=== PATIENT | female | born 1985 | race African-American/Black ===

== ENCOUNTER 2017-12-15 12:30 | Emergency (ER) | payer OTHER ==
[~2017-12-15] VITALS: Ht 167.6 cm; Wt 102.0 kg
[~2017-12-15 12:30] MED LIST: FOLI-43 PO; IRON-1 PO; PNV1TABL76 PO
[2017-12-15 13:09] VITALS: BP 130/79
== END 2017-12-15 19:10 | disposition left against medical advice (07) ==
LOC: EDSTATUS 12:30 → ER 12:46
DX: R10.9 Unspecified abdominal pain (principal); Z53.21 Procedure and treatment not carried out due to patient leaving prior to being seen by health care provider

== ENCOUNTER 2018-01-05 20:41 | Observation (INO) | payer OTHER ==
[~2018-01-05] VITALS: Ht 165.1 cm; Wt 99.8 kg
[2018-01-05] MEDS ORDERED: ACETAMINOPHEN 500MG TABLET PO NR (21:45)
== END 2018-01-05 22:10 | disposition home or self-care (01) ==
LOC: L&D 20:41
PROVIDERS: ADMIT Specialist; ATTEND Specialist
DX: O26.893 Other specified pregnancy related conditions, third trimester (principal); R10.30 Lower abdominal pain, unspecified; Z3A.38 38 weeks gestation of pregnancy
CPT/HCPCS: 99281; G0378

== ENCOUNTER 2018-01-21 09:47 | Observation (INO) | payer OTHER ==
[~2018-01-21] VITALS: Ht 167.6 cm; Wt 99.8 kg
== END 2018-01-21 10:35 | disposition home or self-care (01) ==
LOC: L&D 09:47
PROVIDERS: ADMIT Obstetrics & Gynecology; ATTEND Obstetrics & Gynecology
DX: O62.9 Abnormality of forces of labor, unspecified (principal); O48.1 Prolonged pregnancy; Z3A.40 40 weeks gestation of pregnancy
CPT/HCPCS: G0378

== ENCOUNTER 2018-07-05 17:24 | Emergency (ER) | payer OTHER ==
[~2018-07-05] VITALS: Ht 165.1 cm; Wt 93.0 kg
[2018-07-05 19:46] VITALS: BP 132/73
== END 2018-07-05 22:04 | disposition left against medical advice (07) ==
LOC: ER 17:24
DX: M25.572 Pain in left ankle and joints of left foot (principal)
CPT/HCPCS: 99281

== ENCOUNTER 2024-12-17 14:47 | Emergency (ER) | payer OTHER ==
[~2024-12-17] VITALS: Ht 165.1 cm; Wt 115.3 kg
[2024-12-17 15:03] VITALS: O2SAT 100
[2024-12-17 18:28] LABS: BASOPHILS % 0.7 % (0.0-2.0); EOSINOPHILS % 2.8 % (0.0-5.0); HEMATOCRIT. 30.5 % (36.0-48.0); HEMOGLOBIN. 8.9 g/dL (12.0-16.0); LYMPHOCYTES % 36.2 % (20.0-50.0); MEAN CORPUSCULAR HEMOGLOBIN 21.1 pg (28.0-32.0); MEAN CORPUSCULAR HGB CONC 29.3 g/dL (31.0-37.0); MEAN CORPUSCULAR VOLUME 72.2 fL (81.0-99.0); MEAN PLATELET VOLUME 8.2 fl (7.4-10.4); MONOCYTES % 4.9 % (2.0-8.0); NEUTROPHILS % 55.4 % (40.0-76.0); PLATELET 269 x1000/uL (130-400); RED BLOOD CELL COUNT 4.22 mill/uL (4.2-5.4); RED CELL DISTRIBUTION WIDTH 23.4 % (11.6-14.6)
[2024-12-17 18:29] LABS: ADD RBC MORPHOLOGY YES; DIFFERENTIAL COMMENT 1
[2024-12-17 18:38] LABS: CHLORIDE 110 mEq/L (98-107); POTASSIUM 3.8 mEq/L (3.5-5.1); SODIUM 142 mEq/L (136-145)
[2024-12-17 18:39] LABS: CARBON DIOXIDE 23 mEq/L (21-32)
[2024-12-17 18:44] LABS: CREATININE 0.9 mg/dL (0.6-1.0); GLUCOSE 96 mg/dL (70-105); UREA NITROGEN BLOOD 9 mg/dL (9-23)
[2024-12-17 18:46] LABS: ALANINE AMINOTRANSFERASE 8 IU/L (10-49); ALBUMIN 4.1 g/dL (3.2-4.8); ASPARTATE AMINOTRANSFERASE 14 IU/L (<34); BILIRUBIN TOTAL 0.3 mg/dL (0.1-1.0); PROTEIN TOTAL 7.1 g/dL (6.0-8.3)
[2024-12-17] MEDS ORDERED: [UNRECOGNIZED DRUG - CODE] MT (18:49)
[2024-12-17 18:58] LABS: ANISOCYTOSIS 2+; HYPOCHROMASIA 2+; MICROCYTOSIS 2+; PLATELET ESTIMATE NORMAL
[2024-12-17 19:25] VITALS: BP 144/88; PULSE 100; RESP 18; TEMP 37.00296; O2SAT 100
== END 2024-12-17 19:26 | disposition home or self-care (01) ==
LOC: ER 14:47
DX: N93.9 Abnormal uterine and vaginal bleeding, unspecified (principal); F12.90 Cannabis use, unspecified, uncomplicated
CPT/HCPCS: 36415; 76830; 76856; 80053; 85025; 86850; 86900; 99284